=== PATIENT | female | born 1935 | race Caucasian/White ===

== ENCOUNTER 2018-11-21 19:21 | Emergency (ER) | payer MEDICARE ==
[~2018-11-21] VITALS: Ht 170.1 cm; Wt 65.8 kg
--- NOTE | ~2018-11-21 | EKG ---
[place], [place] ELECTROCARDIOGRAM REPORT NAME: MICHELE STEVENS UNIT #: [id number] ROOM: DOCTOR: EPIPHANY DRAFT REPORT BIRTHDATE: [birth year] [facility] Test Date: 2018-11-21 Test Time: 22:47:11 Pat Name: MICHELE STEVENS Department: Room: Gender: F Regional Manager: Sim Tapia : 1935 Requested By: CAROLYNN BROOKE Order Number: [id number] Reading MD: Mya Solitario Measurements Intervals [place] Rate: 53 P: 65 OK: 165 QRS: -10 QRSD: 107 T: 8 QT: 415 QTc: 390 Interpretive Statements Sinus rhythm Atrial premature complex RSR' in V1 or V2, probably normal variant Probable left ventricular hypertrophy Electronically Signed On 11-23-2018 11:04:33 PDT by Mya Solitario CM:EKGRPT:ELECTROCARDIOGRAM REPORT 1104 CAROLYNN SU DRAFT REPORT CAROLYNN BROOKE DO
--- NOTE | ~2018-11-21 | EKG ---
[place], [place] ELECTROCARDIOGRAM REPORT NAME: MICHELE STEVENS UNIT #: [id number] ROOM: DOCTOR: EPIPHANY DRAFT REPORT BIRTHDATE: [birth year] [facility] Test Date: 2018-11-21 Test Time: 19:34:18 Pat Name: MICHELE STEVENS Department: Room: Gender: F Guide Travel: Sim Tapia : 1935 Requested By: CAROLYNN BROOKE Order Number: [id number] Reading MD: Mya Solitario Measurements Intervals [place] Rate: 67 P: 61 MN: 177 QRS: -2 QRSD: 98 T: 36 QT: 432 QTc: 456 Interpretive Statements Sinus rhythm RSR' in V1 or V2, right VCD or RVH Electronically Signed On 11-23-2018 11:04:15 PDT by Mya Solitario CM:EKGRPT:ELECTROCARDIOGRAM REPORT 33 1104 CAROLYNN SU DRAFT REPORT CAROLYNN BROOKE DO
[2018-11-21] MEDS ORDERED: METOPROLOL SUCC50 M1 PO (19:44)
[2018-11-21] MEDS ORDERED: ASPIRIN ADULT L81 M1 PO (19:44)
[2018-11-21] MEDS ORDERED: LEVOTHYROXINE75 MCG PO (19:44)
[2018-11-21] MEDS ORDERED: DILTIAZEM HCL120 MG PO (19:44)
[2018-11-21] MEDS ORDERED: PAROXETINE HCL20 MG PO (19:45)
[2018-11-21] MEDS ORDERED: TRIAMTERENE-HC1 EACH PO (19:45)
[2018-11-21] MEDS ORDERED: SIMVASTATIN10 MG PO (19:45)
[2018-11-21 20:03] LABS: BASO # 0.1 10*3/uL (0.0-0.1); EOS # 0.5 10*3/uL (0.0-0.4); EOS % 7.1 % (1.0-4.0); HEMATOCRIT 37.8 % (37.0-47.0); HEMOGLOBIN 12.8 g/dl (12.0-16.0); LYMPH # 2.4 10*3/uL (1.3-4.4); LYMPH % 32.7 % (27.0-41.0); MEAN CELL VOLUME 95.9 fl (81.0-99.0); MEAN CORPUSCULAR HGB 32.5 pg (27.0-31.0); MEAN CORPUSCULAR HGB CONC 33.9 g/dl (33.0-37.0); MEAN PLATELET VOLUME 9.5 fl (9.6-12.3); MONO # 0.9 10*3/uL (0.1-1.0); MONO % 12.3 % (3.0-9.0); NEUT # 3.4 10*3/uL (2.3-7.9); NEUT % 46.2 % (47.0-73.0); PLATELET COUNT AUTOMATED 244 10*3/uL (130-400); RED BLOOD COUNT 3.94 10*6/uL (4.10-5.10); WHITE BLOOD COUNT 7.3 10*3/uL (4.8-10.8)
[2018-11-21 20:15] LABS: ACT PARTIAL THROMBO TIME 22.3 SECONDS (20.8-31.5); INTERNATIONAL NORM RATIO 0.9 (2.0-3.5)
[2018-11-21 20:26] LABS: ALKALINE PHOSPHATASE 135 U/L (45-117); BUN 24 mg/dl (7-24); CHLORIDE 106 mmol/L (98-107); CREATININE 1.08 mg/dL (0.55-1.02); POTASSIUM 3.7 mmol/L (3.5-5.1); SGOT/AST 14 IU/L (3-35); SGPT/ALT 17 U/L (12-78); SODIUM 140 mmol/L (136-145)
[2018-11-21 20:41] LABS: TROPONIN I < 0.015 ng/ml (<0.045)
[2018-11-21 20:54] LABS: BILIRUBIN NEGATIVE (NEGATIVE); BLOOD NEGATIVE (NEGATIVE); CLARITY CLEAR (CLEAR); COLOR YELLOW (YELLOW); GLUCOSE NEGATIVE (NEGATIVE); KETONE NEGATIVE (NEGATIVE); LEUKO ESTERASE NEGATIVE (NEGATIVE); NITRITE NEGATIVE (NEGATIVE); SPECIFIC GRAVITY 1.015 (1.005-1.030)
[2018-11-21 21:04] LABS: BACTERIA 1+; EPITHELIAL CELLS 0-2
== END 2018-11-22 00:29 | disposition short-term general hospital (02) ==
LOC: ED 19:21
PROVIDERS: Emergency Medicine
DX: G45.9 Transient cerebral ischemic attack, unspecified (principal); I25.2 Old myocardial infarction; Z79.82 Long term (current) use of aspirin; Z79.899 Other long term (current) drug therapy